=== PATIENT | male | born 1980 | race Caucasian/White ===

== ENCOUNTER 2016-10-13 09:33 | Emergency (ER) | payer BC ==
[~2016-10-13] VITALS: Ht 167.6 cm; Wt 69.0 kg
[~2016-10-13 09:33] MED LIST: HYDR-762 PO; IBUP-1542 PO
[2016-10-13 09:38] VITALS: Ht 167.6 cm; Wt 69.0 kg
[2016-10-13] MEDS ORDERED: KETOROLAC 30 MG INJ IM STA (10:11)
[2016-10-13] MEDS ORDERED: DIAZEPAM 5 MG TAB PO ONE (10:30)
--- NOTE | 2016-10-13 11:07 | ERD ---
ER Documentation Chief Complaint Date/Time DATE: 10/13/16 TIME: 11:04 Chief Complaint Pt with back pain X 2 weeks, worst today;chronic pain. 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 He states that he was lifting something heavy 2 weeks ago developed pain to his low back. He states that the pain got better however he lifted a heavy box yesterday and developed pain to his low back. He denies radiation of pain. Denies numbness or tingling. Denies abdominal pain, nausea, vomiting or diarrhea. Denies headache or dizziness. He states that he has taken Tylenol for his symptoms and using patches which is helped minimally with his symptoms. Denies bowel or bladder incontinence. He is able to ambulate but has pain with flexion and extension. He has no other complaints. ROS All systems reviewed and are negative except as per history of present illness. Medications Home Meds Active Scripts Cyclobenzaprine Hcl* (Cyclobenzaprine Hcl*) 10 Mg Tablet, 10 MG PO TID, #15 TAB Prov:BENSON ESPOSITO PA-C 10/13/16 Naproxen* (Naprosyn*) 500 Mg Tablet, 500 MG PO BID Y for PAIN AND/OR INFLAMMATION, #30 TAB Prov:BENSON ESPOSITO PA-C 10/13/16 Ibuprofen* (Motrin*) 600 Mg Tab, 600 MG PO Q6, #30 TAB Prov:NAOMI BATRES MD 11/25/14 Hydrocodone Bit-Acetaminophen* ([place]*) 10-325 Mg Tablet, 1 TAB PO Q6 Y for PAIN , #20 TAB Prov:NAOMI BATRES MD 11/25/14 Allergies Allergies: Coded Allergies: No Known Allergy (Unverified , 02/03/13) PMhx/Soc Medical and Surgical Hx: pt denies Medical Hx, pt denies Surgical Hx History of Surgery: Yes (HERNIA SURGERY) Anesthesia Reaction: No Hx Neurological Disorder: No Hx Respiratory Disorders: No Hx Cardiac Disorders: No Hx Psychiatric Problems: No Hx Miscellaneous Medical Probl: No Hx Alcohol Use: Yes (SOCIALLY) Hx Substance Use: No Hx Tobacco Use: Yes (1 PACK/DAY) Smoking Status: Current every day smoker FmHx Family History: No coronary disease, No diabetes, No other Physical Exam Vitals Vital Signs Date Time Temp Pulse Resp B/P Pulse Ox O2 Delivery O2 Flow Rate FiO2 10/13/16 09:38 97.7 86 18 121/82 98 Physical Exam GENERAL: Well-developed, well-nourished male. Appears in no acute distress. LUNG: Clear to auscultation bilaterally. No rhonchi, wheezing, rales or coarse breath sounds. HEART: Regular rate and rhythm. No murmurs, rubs or gallops. BACK: No midline tenderness. No spinal or paraspinal tenderness. No step-offs or deformities. No erythema or swelling or fluctuance or induration. No warmth. No open wounds or lacerations. Unable to fully flex and fully extend. However lateral rotation is intact. Extremities: Equal pulses bilaterally. No peripheral clubbing, cyanosis or edema. No unilateral leg swelling. NEUROLOGIC: Alert and oriented. Moving all four extremities. 5/5 strength in all extremities. Normal speech. UNSteady gait. SKIN: Normal color. Warm and dry. No rashes or lesions. Capillary refill < 2 seconds Results 24 hrs Current Medications Medications (Trade) Dose Ordered Sig/Noni Route PRN Reason Start Time Stop Time Status Last Admin Dose Admin Ketorolac Tromethamine (Toradol) 30 mg ONCE STAT IM 10/13/16 10:11 10/13/16 10:15 DC 10/13/16 11:01 Diazepam (Valium) 2.5 mg ONCE ONCE PO 10/13/16 10:30 10/13/16 10:31 DC 10/13/16 11:01 Procedures/MDM ER COURSE: I kept the patient and/or family informed of laboratory and diagnostic imaging results throughout the emergency room course. IMAGING STUDIES [place] [id number] Radiology Main Line: [phone] DIAGNOSTIC IMAGING REPORT Patient: LORI KING : 1980 Age: 35 Sex: M MR #: [id number] DOS: 10/13/16 1011 Ordering MD: BENSON ESPOSITO PAJennifer Location: [facility] Room/Bed: PROCEDURE: XR lumbar spine CLINICAL INDICATION: Low back pain TECHNIQUE: 3 views of the lumbar spine were obtained COMPARISON: None available FINDINGS: There is preservation of the lordosis of the lumbar spine. Alignment appears intact. The vertebral bodies are maintained. Height. No fracture is seen. Mild anterior spondylosis is seen at L2-3 through L5-S1. There is moderate disk space narrowing at L5-S1. Sacroiliac joints appear intact. IMPRESSION: Lumbar spondylosis, most pronounced at L5-S1. RPTAT: VV .Jm Jerry MD, Date Time Electronically viewed and signed by .Jm Jerry MD, MD on 10/13/2016 11:54 .O/ CC: BENSON ESPOSITO PA-C MEDICATIONS Toradol 30 mg IM and Valium. Tolerated well with no adverse reaction. Seen improvement in his symptoms per MEDICAL DECISION MAKING: This is a 35-year-old male who presents with back pain 2 weeks vital signs were reviewed. Patient is afebrile. Patient is not hypoxic. Patient is not toxic or ill-appearing. His x-rays read by radiologist is unremarkable for fracture or dislocation and shows spondylosis. Patient likely has muscle strain versus sprain. I reexamined patient after administration of medication and he stated improvement in symptoms. Low suspicion for cauda equine syndrome , spinal epidural hematoma, spinal epidural abscess, osteomyelitis, fracture, aortic dissection, AAA, pyelonephritis, nephrolithiasis, septic stone, obstructed stone. DISCHARGE: At this time, patient is stable for discharge and outpatient management with no new complaints during the ER course. Patient was sent home with Naprosyn and Flexeril and a copy of his imaging report. I advised patient to use ice, heat and rest.. Patient will be discharged home with instructions to recheck for new or worsening symptoms such as fever, nausea, weakness, LOC and to follow up with primary care in the next 1-2 days. Patient was advised to return to the ER for any new or worsening symptoms. Plan was discussed and patient and/or family understands and agrees. Home instructions were given. Departure Diagnosis: Primary Impression: Back pain Back pain location: low back pain Chronicity: unspecified Back pain laterality: unspecified Sciatica presence: unspecified whether sciatica present Qualified Code: M54.5 - Low back pain, unspecified back pain laterality, unspecified chronicity, with sciatica presence unspecified Condition: Stable BENSON ESPOSITO PA-C October 13, 2016 11:07
--- NOTE | 2016-10-13 11:54 | RADRPT ---
PROCEDURE: XR lumbar spine CLINICAL INDICATION: Low back pain TECHNIQUE: 3 views of the lumbar spine were obtained COMPARISON: None available FINDINGS: There is preservation of the lordosis of the lumbar spine. Alignment appears intact. The vertebral bodies are maintained. Height. No fracture is seen. Mild anterior spondylosis is seen at L2-3 th rough L5-S1. There is moderate disk space narrowing at L5-S1. Sacroiliac joints appear intact. IMPRESSION: Lumbar spondylosis, most pronounced at L5-S1. RPTAT: VV .Jm Jerry MD, Date Time Electronically viewed and signed by .Jm Jerry MD, on 10/13/2016 11:54 .O/
[2016-10-13] MEDS ORDERED: NAPR-260 PO (12:10)
[2016-10-13] MEDS ORDERED: CYCL-319 PO (12:10)
[2016-10-13 12:56] VITALS: BP 124/85; PULSE 78; TEMP 98.2
== END 2016-10-13 12:57 | disposition home or self-care (01) ==
LOC: FTE 09:33
DX: M54.5 Low back pain (principal); F17.210 Nicotine dependence, cigarettes, uncomplicated; Z04.3 Encounter for examination and observation following other accident
CPT/HCPCS: 72100; 96372; J1885; Z7502; Z7610